=== PATIENT | male | born 1950 | race African-American/Black ===

== ENCOUNTER 2016-07-01 10:39 | Emergency (ER) | payer MEDICARE ==
[~2016-07-01] VITALS: Ht 195.6 cm; Wt 85.7 kg
[2016-07-01 10:46] VITALS: BP 159/94
== END 2016-07-01 11:48 | disposition home or self-care (01) ==
LOC: ER 10:49
DX: S46.912A Strain of unspecified muscle, fascia and tendon at shoulder and upper arm level, left arm, initial encounter (principal); S86.912A Strain of unspecified muscle(s) and tendon(s) at lower leg level, left leg, initial encounter; V43.52XA Car driver injured in collision with other type car in traffic accident, initial encounter; Y93.89 Activity, other specified; Y99.8 Other external cause status; Y92.89 Other specified places as the place of occurrence of the external cause